=== PATIENT | female | born 1990 | race African-American/Black ===

== ENCOUNTER 2019-01-16 19:04 | Emergency (ER) | payer SELFPAY ==
[~2019-01-16] VITALS: Ht 154.9 cm; Wt 78.0 kg
[2019-01-16] MEDS ORDERED: CYCL10TA7 PO (19:56)
[2019-01-16] MEDS ORDERED: KETOROLAC 60MG/2ML VIAL IM STA (22:20)
[2019-01-16 23:47] LABS: CLARITY URINE CLOUDY (CLEAR); COLOR URINE DARK YELLOW (YELLOW); KETONES URINE 3+ (NEGATIVE); LEUKOCYTE ESTERASE URINE 2+ (NEGATIVE); NITRITE URINE NEGATIVE (NEGATIVE); OCCULT BLOOD URINE TRACE (NEGATIVE); PROTEIN URINE TRACE (NEGATIVE); SPECIFIC GRAVITY URINE 1.038 (1.005-1.030)
[2019-01-17 00:15] VITALS: BP 128/76
== END 2019-01-17 00:16 | disposition home or self-care (01) ==
LOC: ER 19:04
DX: M54.5 Low back pain (principal); N39.0 Urinary tract infection, site not specified; Z86.19 Personal history of other infectious and parasitic diseases
CPT/HCPCS: 72100; 81003; 81025; 87086; 96372; 99284; J1885

== ENCOUNTER 2021-02-02 18:53 | Emergency (ER) | payer MEDICAID ==
[~2021-02-02] VITALS: Ht 154.9 cm; Wt 79.0 kg
[~2021-02-02 18:53] MED LIST: CYCL10TA7 PO
[2021-02-02] MEDS ORDERED: IBUPROFEN 800MG TABLET PO ONE (19:15)
[2021-02-02] MEDS ORDERED: PREDNISONE 20MG TABLET PO ONE (19:15)
[2021-02-02 20:02] LABS: BASOPHILS % 1.1 % (0.0-2.0); EOSINOPHILS % 2.5 % (0.0-5.0); HEMATOCRIT. 40.9 % (36.0-48.0); HEMOGLOBIN. 13.8 g/dL (12.0-16.0); LYMPHOCYTES % 35.3 % (20.0-50.0); MEAN CORPUSCULAR HEMOGLOBIN 30.3 pg (28.0-32.0); MEAN CORPUSCULAR VOLUME 89.5 fL (81.0-99.0); MEAN PLATELET VOLUME 7.5 fl (7.4-10.4); MONOCYTES % 5.4 % (2.0-8.0); NEUTROPHILS % 55.7 % (40.0-76.0); PLATELET 410 x1000/uL (130-400); RED BLOOD CELL COUNT 4.56 mill/uL (4.2-5.4)
[2021-02-02 20:03] LABS: CHLORIDE 105 mEq/L (98-107)
[2021-02-02 20:07] LABS: PROTHROMBIN TIME 10.3 sec (9.6-11.0)
[2021-02-02 20:10] LABS: HCG SCREEN NEGATIVE
[2021-02-02 20:39] LABS: CLARITY URINE CLOUDY (CLEAR); COLOR URINE YELLOW (YELLOW); KETONES URINE NEGATIVE (NEGATIVE); LEUKOCYTE ESTERASE URINE TRACE (NEGATIVE); NITRITE URINE NEGATIVE (NEGATIVE); OCCULT BLOOD URINE NEGATIVE (NEGATIVE); PH URINE 6.5 (4.5-8.0); PROTEIN URINE NEGATIVE (NEGATIVE); SPECIFIC GRAVITY URINE 1.027 (1.005-1.030)
[2021-02-02 21:12] VITALS: BP 135/77
[2021-02-02] MEDS ORDERED: IBUP-2029 MT (21:47)
[2021-02-02] MEDS ORDERED: PRED5TAB48 MT (21:47)
== END 2021-02-02 22:37 | disposition home or self-care (01) ==
LOC: ER 18:53
DX: R21 Rash and other nonspecific skin eruption (principal); F12.10 Cannabis abuse, uncomplicated; Z98.890 Other specified postprocedural states
CPT/HCPCS: 36415; 80053; 81003; 81025; 84703; 85025; 85610; 99283; J7512

== ENCOUNTER 2021-11-15 09:38 | Emergency (ER) | payer MEDICAID ==
[~2021-11-15] VITALS: Ht 160 cm; Wt 75.0 kg
[~2021-11-15 09:38] MED LIST changes: +IBUP-2029 MT; +PRED5TAB48 MT
[2021-11-15 10:05] VITALS: BP 115/65
[2021-11-15 12:39] LABS: CLARITY URINE CLEAR (CLEAR); COLOR URINE YELLOW (YELLOW); KETONES URINE TRACE (NEGATIVE); LEUKOCYTE ESTERASE URINE 1+ (NEGATIVE); NITRITE URINE NEGATIVE (NEGATIVE); OCCULT BLOOD URINE NEGATIVE (NEGATIVE); PROTEIN URINE TRACE (NEGATIVE); SPECIFIC GRAVITY URINE 1.025 (1.005-1.030)
[2021-11-15] MEDS ORDERED: ONDANSETRON 4MG ODT PO ONE (13:30)
[2021-11-15] MEDS ORDERED: NITR100C MT (13:57)
== END 2021-11-15 14:30 | disposition home or self-care (01) ==
LOC: ER 10:35
DX: J06.9 Acute upper respiratory infection, unspecified (principal); N39.0 Urinary tract infection, site not specified; F12.10 Cannabis abuse, uncomplicated; Z20.822 Contact with and (suspected) exposure to COVID-19
CPT/HCPCS: 76815; 81003; 87086; 99284; C9803; U0003; U0005; Q0162

== ENCOUNTER 2022-03-31 07:59 | Observation (INO) | payer MEDICAID ==
[~2022-03-31] VITALS: Ht 154.9 cm; Wt 76.2 kg
[~2022-03-31 07:59] MED LIST changes: +NITR100C MT
[2022-03-31 09:55] LABS: CLARITY URINE CLEAR (CLEAR); COLOR URINE YELLOW (YELLOW); KETONES URINE NEGATIVE (NEGATIVE); LEUKOCYTE ESTERASE URINE 2+ (NEGATIVE); NITRITE URINE NEGATIVE (NEGATIVE); OCCULT BLOOD URINE 1+ (NEGATIVE); PROTEIN URINE 1+ (NEGATIVE); UROBILINOGEN URINE 0.2 E.U./dL (0.2-1.0)
== END 2022-03-31 10:30 | disposition home or self-care (01) ==
LOC: 8 EST LDRP 07:59
PROVIDERS: ADMIT Obstetrics & Gynecology; ATTEND Obstetrics & Gynecology
DX: O26.853 Spotting complicating pregnancy, third trimester (principal); Z3A.26 26 weeks gestation of pregnancy
CPT/HCPCS: 76805; 76818; 81003; 99281; G0378; 59025

== ENCOUNTER 2024-05-11 23:55 | Emergency (ER) | payer SELFPAY ==
[~2024-05-11] VITALS: Ht 154.9 cm; Wt 76.0 kg
[~2024-05-11 23:55] MED LIST changes: -CYCL10TA7 PO
[2024-05-12 00:12] VITALS: O2SAT 100
[2024-05-12 00:41] LABS: BASOPHILS % 0.8 % (0.0-2.0); EOSINOPHILS % 1.2 % (0.0-5.0); HEMATOCRIT. 43.4 % (36.0-48.0); HEMOGLOBIN. 14.7 g/dL (12.0-16.0); LYMPHOCYTES % 31.3 % (20.0-50.0); MEAN CORPUSCULAR HEMOGLOBIN 31.7 pg (28.0-32.0); MEAN CORPUSCULAR HGB CONC 33.9 g/dL (31.0-37.0); MEAN CORPUSCULAR VOLUME 93.5 fL (81.0-99.0); MEAN PLATELET VOLUME 6.8 fl (7.4-10.4); MONOCYTES % 7.9 % (2.0-8.0); NEUTROPHILS % 58.8 % (40.0-76.0); PLATELET 317 x1000/uL (130-400); RED BLOOD CELL COUNT 4.64 mill/uL (4.2-5.4); RED CELL DISTRIBUTION WIDTH 13.7 % (11.6-14.6); WHITE BLOOD COUNT 5.9 x1000/uL (4.5-11.0)
[2024-05-12 00:50] LABS: CHLORIDE 103 mEq/L (98-107); POTASSIUM 3.5 mEq/L (3.5-5.1); SODIUM 138 mEq/L (136-145)
[2024-05-12 00:51] LABS: CARBON DIOXIDE 30 mEq/L (21-32)
[2024-05-12 00:56] LABS: GLUCOSE 105 mg/dL (70-105)
[2024-05-12 00:57] LABS: UREA NITROGEN BLOOD 7 mg/dL (9-23)
[2024-05-12 00:58] LABS: ALANINE AMINOTRANSFERASE 10 IU/L (10-49); ALBUMIN 4.2 g/dL (3.2-4.8); ASPARTATE AMINOTRANSFERASE 19 IU/L (<34)
[2024-05-12 00:59] LABS: BILIRUBIN TOTAL 0.6 mg/dL (0.1-1.0); PROTEIN TOTAL 6.9 g/dL (6.0-8.3)
[2024-05-12 01:24] LABS: CREATININE 0.8 mg/dL (0.6-1.0)
[2024-05-12 02:59] LABS: CLARITY URINE CLOUDY (CLEAR); COLOR URINE YELLOW (YELLOW); GLUCOSE URINE NEGATIVE (NEGATIVE); KETONES URINE TRACE (NEGATIVE); LEUKOCYTE ESTERASE URINE 2+ (NEGATIVE); NITRITE URINE NEGATIVE (NEGATIVE); OCCULT BLOOD URINE 2+ (NEGATIVE); PROTEIN URINE TRACE (NEGATIVE); SPECIFIC GRAVITY URINE 1.029 (1.005-1.030)
[2024-05-12 04:48] LABS: BACTERIA URINE 1+; MUCUS URINE 2+ /lpf (< = 2+); SQUAMOUS EPITHELIAL CELL URINE 2+ /lpf (RARE/1+)
[2024-05-12] MEDS ORDERED: FAMO-135 MT (05:14)
[2024-05-12] MEDS ORDERED: ONDA4TAB50 MT (05:14)
[2024-05-12 05:30] VITALS: BP 123/84; PULSE 78; RESP 12; TEMP 98
== END 2024-05-12 05:42 | disposition home or self-care (01) ==
LOC: ER 23:55
DX: R10.9 Unspecified abdominal pain (principal); R11.2 Nausea with vomiting, unspecified; F12.10 Cannabis abuse, uncomplicated
CPT/HCPCS: 36415; 74176; 80053; 81003; 81025; 85025; 99284

== ENCOUNTER 2024-07-21 16:12 | Emergency (ER) | payer OTHER ==
[~2024-07-21] VITALS: Ht 162.6 cm; Wt 69.0 kg
[~2024-07-21 16:12] MED LIST changes: +FAMO-135 MT; +ONDA4TAB50 MT
[2024-07-21 16:16] VITALS: O2SAT 100
[2024-07-21 18:20] LABS: HEMATOCRIT. 44.5 % (36.0-48.0); HEMOGLOBIN. 14.8 g/dL (12.0-16.0); MEAN CORPUSCULAR HEMOGLOBIN 31.4 pg (28.0-32.0); MEAN CORPUSCULAR HGB CONC 33.4 g/dL (31.0-37.0); MEAN CORPUSCULAR VOLUME 94.3 fL (81.0-99.0); MEAN PLATELET VOLUME 7.1 fl (7.4-10.4); PLATELET 350 x1000/uL (130-400); RED BLOOD CELL COUNT 4.72 mill/uL (4.2-5.4); RED CELL DISTRIBUTION WIDTH 14.4 % (11.6-14.6); WHITE BLOOD COUNT 10.2 x1000/uL (4.5-11.0)
[2024-07-21 18:21] LABS: DIFFERENTIAL COMMENT 1
[2024-07-21 18:22] LABS: CLARITY URINE CLEAR (CLEAR); COLOR URINE DARK YELLOW (YELLOW); GLUCOSE URINE NEGATIVE (NEGATIVE); KETONES URINE 2+ (NEGATIVE); LEUKOCYTE ESTERASE URINE TRACE (NEGATIVE); NITRITE URINE NEGATIVE (NEGATIVE); OCCULT BLOOD URINE NEGATIVE (NEGATIVE); PROTEIN URINE 1+ (NEGATIVE); SPECIFIC GRAVITY URINE 1.031 (1.005-1.030)
[2024-07-21 18:28] LABS: CHLORIDE 105 mEq/L (98-107); POTASSIUM 3.8 mEq/L (3.5-5.1); SODIUM 137 mEq/L (136-145)
[2024-07-21 18:29] LABS: CARBON DIOXIDE 28 mEq/L (21-32)
[2024-07-21 18:34] LABS: CREATININE 0.6 mg/dL (0.6-1.0); GLUCOSE 118 mg/dL (70-105); UREA NITROGEN BLOOD 9 mg/dL (9-23)
[2024-07-21 18:35] LABS: HCG SCREEN NEGATIVE
[2024-07-21 18:36] LABS: ALANINE AMINOTRANSFERASE 10 IU/L (10-49); ASPARTATE AMINOTRANSFERASE 14 IU/L (<34); BILIRUBIN DIRECT 0.7 mg/dL (<=3.0)
[2024-07-21 18:37] LABS: PROTEIN TOTAL 7.9 g/dL (6.0-8.3)
[2024-07-21 18:57] LABS: BACTERIA URINE 1+; RBC URINE 0-2 /hpf (0-2); SQUAMOUS EPITHELIAL CELL URINE 1+ /lpf (RARE/1+); WBC URINE 0-2 /hpf (0-2)
[2024-07-21 19:31] LABS: PLATELET ESTIMATE NORMAL
[2024-07-21] MEDS: ONDANSETRON 4MG ODT PO ONE ×2 (19:38→20:24)
[2024-07-21] MEDS: ACETAMINOPHEN 325MG TABLET PO ONE (19:39)
[2024-07-21] MEDS ORDERED: ONDA4TAB50 MT (20:11)
[2024-07-21] MEDS ORDERED: TOPUD MT (20:11)
[2024-07-21] MEDS ORDERED: PANT40SU MT (20:11)
[2024-07-21 20:23] VITALS: BP 115/62; PULSE 74; RESP 16; TEMP 36.61404; O2SAT 100
== END 2024-07-21 20:22 | disposition home or self-care (01) ==
LOC: ER 16:12
DX: K29.00 Acute gastritis without bleeding (principal); F12.90 Cannabis use, unspecified, uncomplicated; Z79.899 Other long term (current) drug therapy
CPT/HCPCS: 99283; 80076; 80048; 81003; 84703; 83690; 85025; 36415; Q0162